=== PATIENT | male | born 1955 | race Caucasian/White ===

== ENCOUNTER 2018-01-18 10:16 | Emergency (ER) | payer BC, OTHER ==
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
== END 2018-01-18 11:55 | disposition home or self-care (01) ==
LOC: ERS 10:16
DX: S16.1XXA Strain of muscle, fascia and tendon at neck level, initial encounter (principal); I10 Essential (primary) hypertension; F17.220 Nicotine dependence, chewing tobacco, uncomplicated; V89.2XXA Person injured in unspecified motor-vehicle accident, traffic, initial encounter; Y92.411 Interstate highway as the place of occurrence of the external cause
CPT/HCPCS: 70450; 72125

== ENCOUNTER 2020-08-27 07:59 | Outpatient (CLI) | payer OTHER ==
--- NOTE | 2020-08-27 09:34 | CT ---
CT chest, abdomen, and pelvis with IV contrast: HISTORY: Monoclonal gammopathy, Castleman's disease FINDINGS: No evidence for mediastinal mass or adenopathy. No pleural effusion or pericardial effusion. There is a smooth pleural-based nodular density in the anterior aspect of the lingula. Mild linear scarring in the lingula. Fatty changes in the liver. Status post cholecystectomy without significant common duct dilatation. P ancreas is unremarkable as is the spleen and adrenal glands. Multiple nonobstructing bilateral renal calculi. No evidence for solid or cystic renal mass. Normal-appearing appendix. No large or sma ll bowel obstruction. Atherosclerosis of the aorta. Unremarkable appearing urinary bladder. No abscess or abnormal fluid collection There are some degenerative and osteoarthrosis changes involving the visualized bony skeleton but no evidence for focal bone osteolytic lesions IMPRESSION: Nonobstructing bilateral renal calculi. Smooth circumscribed pleural-based nodular density in the anterior lingular region measuring 0.3 x 1. 0 cm No evidence for focal bone osteolytic lesions.
[2020-08-27] MEDS ORDERED: Iopamidol-370 76% 500 ML 1 ML ONE (13:26)
== END 2020-08-27 08:00 | disposition home or self-care (01) ==
LOC: BICCT 07:59
PROVIDERS: ATTEND Internal Medicine Hematology & Oncology
DX: D47.2 Monoclonal gammopathy (principal); D47.Z2 Castleman disease; R16.2 Hepatomegaly with splenomegaly, not elsewhere classified; M89.50 Osteolysis, unspecified site; N20.0 Calculus of kidney; J98.4 Other disorders of lung
CPT/HCPCS: 71260; 74177; 82565; Q9967

== ENCOUNTER 2020-12-03 08:34 | Day surgery (SDC) | payer BC ==
[2020-12-02 15:29] VITALS: BMI 38.7
[2020-12-03 08:46] LABS: #Eosinphils 0.5 thou/uL (0.0-0.7); #Lymphocytes 2.4 thou/uL (1.20-3.40); #Monocytes 0.9 thou/uL (0.11-0.59); #Neutrophils 6.6 thou/uL (1.40-6.50); %Basophils 0.4 % (0.0-1.0); %Eosinophils 4.3 % (0.0-10.0); %Lymphocytes 22.9 % (21.0-51.0); %Monocytes 8.7 % (0.0-10.0); %Neutrophils 63.7 % (42.0-75.0); Hemoglobin 17.5 g/dL (14.0-18.0); Mean Corpuscular Hemoglobin 32.6 pg (27.0-31.0); Mean Corpuscular Volume 93.2 fL (78.0-98.0); Mean Platelet Volume 8.7 fL (7.4-10.4); Platelet Count 251 thou/uL (130-400); RBC Distribution Width 12.8 % (11.5-14.5); Red Blood Cell (RBC) Count 5.37 mill/uL (4.70-6.10); White Blood Cell (WBC) Count 10.4 thou/uL (4.8-10.8)
[2020-12-03 08:58] LABS: Prothrombin Time 13.4 sec (12.0-14.7)
[2020-12-03 08:59] LABS: PTT 37.4 sec (22.9-36.1)
[2020-12-03 10:30] VITALS: BP 140/83; TEMP 98.2
--- NOTE | 2020-12-03 11:52 | CT ---
Bone marrow aspiration/biopsy CT-guided HISTORY: Monoclonal gammopathy. FINDINGS: After explaining the procedure and answering all questions, limited CT imaging of the pelvi s was performed with patient prone. Sterile technique, buffered local anesthesia, CT guidance, and a posterior approach were used to care fully advance an 11-gauge bone biopsy needle to the posterior cortex of the left iliac body. Position confirmed with CT. Needle was carefully engaged into the bone. Blood aspirate and 11-gauge c ore specimen were obtained and submitted to pathology for evaluation and processing. Patient tolerated the procedure well and was eventually dismissed in good condition. IMPRESSION : Technically successful CT-guided bone marrow aspiration/biopsy. Pathology is pending.
--- NOTE | 2020-12-04 13:21 | CT ---
Bone marrow aspiration/biopsy CT-guided HISTORY: Monoclonal gammopathy. FINDINGS: After explaining the procedure and answering all questions, limited CT imaging of the pelvi s was performed with patient prone. Sterile technique, buffered local anesthesia, CT guidance, and a posterior approach were used to care fully advance an 11-gauge bone biopsy needle to the posterior cortex of the left iliac body. Position confirmed with CT. Needle was carefully engaged into the bone. Blood aspirate and 11-gauge c ore specimen were obtained and submitted to pathology for evaluation and processing. Patient tolerated the procedure well and was eventually dismissed in good condition. IMPRESSION : Technically successful CT-guided bone marrow aspiration/biopsy. Pathology is pending. Transcribed Date/Time: 12/04/2020 1:21 PM
== END 2020-12-03 10:53 | disposition home or self-care (01) ==
LOC: CT 08:34
PROVIDERS: ATTEND Internal Medicine Hematology & Oncology
PROC: 07DR3ZX Extraction of Iliac Bone Marrow, Percutaneous Approach, Diagnostic (ICD-10-PCS; principal; 2020-12-03)
PROC: 079T3ZX Drainage of Bone Marrow, Percutaneous Approach, Diagnostic (ICD-10-PCS; principal; 2020-12-03)
DX: D47.2 Monoclonal gammopathy (principal); D75.1 Secondary polycythemia; F17.220 Nicotine dependence, chewing tobacco, uncomplicated; F12.10 Cannabis abuse, uncomplicated; I10 Essential (primary) hypertension; M10.9 Gout, unspecified; E66.9 Obesity, unspecified; Z68.38 Body mass index [BMI] 38.0-38.9, adult; Z79.82 Long term (current) use of aspirin; Z79.899 Other long term (current) drug therapy; Z88.5 Allergy status to narcotic agent
CPT/HCPCS: 20225; 36415; 77012; 85025; 85097; 85610; 85730; 88121; 88184; 88237; 88305; 88311; 88313

== ENCOUNTER 2021-01-12 09:49 | Outpatient (CLI) | payer BC | END 2021-01-12 09:50 | disposition home or self-care (01) | LOC: BICCT 09:49 | PROVIDERS: ATTEND Internal Medicine Critical Care Medicine | DX: R91.1 Solitary pulmonary nodule (principal) | CPT/HCPCS: 71250 ==

== ENCOUNTER 2023-02-14 09:19 | Outpatient (CLI) | payer MEDICARE, OTHER, BC | END 2023-02-14 09:20 | disposition home or self-care (01) | LOC: SCSCT 09:19 | PROVIDERS: ATTEND Internal Medicine Critical Care Medicine | DX: R91.1 Solitary pulmonary nodule (principal) | CPT/HCPCS: 71250 ==

== ENCOUNTER 2024-03-29 08:02 | Outpatient (CLI) | payer MEDICARE, OTHER, BC | END 2024-03-29 08:03 | disposition home or self-care (01) | LOC: CT 08:02 | PROVIDERS: ATTEND Internal Medicine Hematology & Oncology | DX: C90.00 Multiple myeloma not having achieved remission (principal) | CPT/HCPCS: 76497 ==

== ENCOUNTER 2024-08-07 09:08 | Outpatient (CLI) | payer MEDICARE, OTHER | END 2024-08-07 09:09 | disposition home or self-care (01) | LOC: SCSMRI 09:08 | PROVIDERS: ATTEND Internal Medicine Hematology & Oncology | DX: C90.00 Multiple myeloma not having achieved remission (principal); R29.6 Repeated falls; S32.039A Unspecified fracture of third lumbar vertebra, initial encounter for closed fracture; M48.061 Spinal stenosis, lumbar region without neurogenic claudication; M48.07 Spinal stenosis, lumbosacral region; R93.7 Abnormal findings on diagnostic imaging of other parts of musculoskeletal system | CPT/HCPCS: 72158 ==

== ENCOUNTER 2025-07-23 08:00 | Outpatient (CLI) | payer MEDICARE, OTHER | END 2025-07-23 08:01 | disposition home or self-care (01) | LOC: PET 08:00 | PROVIDERS: ATTEND Internal Medicine Hematology & Oncology | DX: C90.00 Multiple myeloma not having achieved remission (principal); R91.8 Other nonspecific abnormal finding of lung field | CPT/HCPCS: 78816; A9552 ==

== ENCOUNTER → 2025-08-02 | Day surgery (SDC) | payer MEDICARE, OTHER ==
[~2025-08-02] MED LIST: Lidocaine 1% w/Epinephrine 1:100K 20 ML VIAL ONE; Sodium Bicarbonate 2.5 MEQ/5 ML SDV ONE
[2025-08-02 08:51] LABS: #Basophils 0.10 10x3/uL (0.0-0.2); #Eosinophils 0.48 10x3/uL (0.0-0.7); #Monocytes 0.65 10x3/uL (0.11-0.59); #Neutrophils 2.45 10x3/uL (1.40-6.50); %Basophils 1.9 % (0.0-1.0); %Eosinophils 9.1 % (0.0-10.0); %Lymphocytes 29.3 % (21.0-51.0); %Monocytes 12.4 % (0.0-10.0); %Neutrophils 46.7 % (42.0-75.0); Hematocrit 37.7 % (42.0-52.0); Hemoglobin 13.1 g/dL (14.0-18.0); Mean Corpuscular Hemoglobin 32.8 pg (27.0-31.0); Mean Corpuscular Volume 94.5 fL (78.0-98.0); Platelet Count 134 10x3/uL (130-400); Red Blood Cell (RBC) Count 3.99 mill/uL (4.70-6.10); White Blood Cell (WBC) Count 5.25 10x3/uL (4.8-10.8)
[2025-08-02 08:55] LABS: INR-International Normal Ratio 1.1; Prothrombin Time 14.4 sec (12.0-14.7)
[2025-08-02 08:56] LABS: PTT 36.7 sec (22.9-36.1)
== END ==
LOC: CT 08:19
PROVIDERS: ATTEND Internal Medicine Hematology & Oncology
PROC: 07DR3ZX Extraction of Iliac Bone Marrow, Percutaneous Approach, Diagnostic (ICD-10-PCS; principal; 2025-08-02)
DX: D64.9 Anemia, unspecified (principal); D75.89 Other specified diseases of blood and blood-forming organs; I10 Essential (primary) hypertension; M10.9 Gout, unspecified; E66.9 Obesity, unspecified; Z68.35 Body mass index [BMI] 35.0-35.9, adult; Z90.49 Acquired absence of other specified parts of digestive tract; Z98.890 Other specified postprocedural states; Z88.5 Allergy status to narcotic agent; Z79.899 Other long term (current) drug therapy
CPT/HCPCS: 36000; 38222; 77002; 77012; 85025; 85097; 85610; 85730; C1830; 36415; 88184; 88185; 88189; 88237; 88264; 88280; 88305; 88311; 88313; 88342; J3010

== ENCOUNTER 2025-10-22 10:47 | Outpatient (CLI) | payer MEDICARE, BC | END 2025-10-22 10:48 | disposition home or self-care (01) | LOC: BICRAD 10:47 | PROVIDERS: ATTEND Family Medicine | DX: M25.552 Pain in left hip (principal); R06.02 Shortness of breath; N20.0 Calculus of kidney; M47.816 Spondylosis without myelopathy or radiculopathy, lumbar region; S32.039A Unspecified fracture of third lumbar vertebra, initial encounter for closed fracture | CPT/HCPCS: 71046; 72100 ==

== ENCOUNTER 2025-10-23 08:13 | Day surgery (SDC) | payer MEDICARE, BC ==
[2025-10-23] MEDS ORDERED: diphenhydrAMINE 25 MG CAP ONE (08:32)
[2025-10-23] MEDS ORDERED: Acetaminophen 500 MG TAB ONE (08:32)
[2025-10-23] MEDS: diphenhydrAMINE 25 MG CAP PO SCH (08:33)
[2025-10-23] MEDS: Acetaminophen 500 MG TAB PO SCH (08:33)
[2025-10-23 15:33] VITALS: TEMP 98.3
[2025-10-23 15:40] VITALS: BP 127/60
[2025-10-23] MEDS ORDERED: FLU (Fluad Triv) 25-26 (65UP)PF 45 MCG/0.5 ML Syringe IM ONE (16:00)
== END 2025-10-23 14:30 | disposition home or self-care (01) ==
LOC: ONC/OP 08:13
PROVIDERS: ATTEND Internal Medicine Hematology & Oncology
DX: D64.9 Anemia, unspecified (principal)
CPT/HCPCS: 36430; 86850; 86900; 86901; 86920; G0463; P9016; P9040; 99211